=== PATIENT | male | born 1950 | race Caucasian/White ===

== ENCOUNTER 2017-06-11 11:18 | Observation (INO) | payer OTHER ==
[2017-06-04 11:02] VITALS: BP 132/92
[~2017-06-11] VITALS: Ht 193 cm; Wt 73.4 kg
[~2017-06-11 11:18] MED LIST: LISI-167 PO; QUET200T PO; TERA2CAP3 PO; VENL225T PO
[2017-06-11] MEDS ORDERED: LACTATED RINGERS 1,000 ML IV SCH (12:29)
[2017-06-11] MEDS ORDERED: LIDOCAINE 1%, 2ML SQ PRN (12:30)
[2017-06-11] MEDS ORDERED: DEXAMETHASONE 4 MG/ML, 1ML ONE (15:39)
[2017-06-11] MEDS ORDERED: SUCCINYLCHOLINE 20 MG/ML, 10ML ONE (15:39)
[2017-06-11] MEDS ORDERED: ONDANSETRON 2MG/ML, 2ML ONE (15:39)
[2017-06-11] MEDS ORDERED: CIPROFLOXACIN 400MG/200ML PMX ONE (15:39)
[2017-06-11] MEDS ORDERED: FENTANYL PF 100 MCG/2ML ONE ×2 (15:43→17:05)
[2017-06-11] MEDS ORDERED: OXYcodone 5 MG/5 ML ORAL.SOL UDC PO PRN (17:00)
[2017-06-11] MEDS ORDERED: ALBUTEROL SULFATE 2.5 MG/3 ML NPPB PRN (17:00)
[2017-06-11] MEDS ORDERED: METOPROLOL 1 MG/ML, 5ML IV PRN (17:00)
[2017-06-11] MEDS ORDERED: HYDROmorphone 1 MG/ML, 1ML IV PRN (17:00)
[2017-06-11] MEDS ORDERED: hydrALAzine 20 MG/ML, 1ML IV PRN (17:00)
[2017-06-11] MEDS ORDERED: MIDAZOLAM 1 MG/ML, 2ML IV PRN (17:00)
[2017-06-11] MEDS ORDERED: PROMETHAZINE 25 MG/ML, 1ML IV PRN (17:00)
[2017-06-11] MEDS ORDERED: MEPERIDINE/PF 25MG/0.5ML IVPush PRN (17:00)
[2017-06-11] MEDS ORDERED: OXYcodone 5 MG/5 ML ORAL.SOL UDC ONE (17:02)
[2017-06-11] MEDS ORDERED: ACETAMINOPHEN 325 MG TABLET ONE (17:02)
[2017-06-11] MEDS ORDERED: ACETAMINOPHEN 650 MG/20.3 ML UDC ONE (17:02)
[2017-06-11] MEDS: ACETAMINOPHEN 325 MG TABLET PO PRN ×2 (17:05→17:28)
[2017-06-11] MEDS: FENTANYL PF 100 MCG/2ML IV PRN ×2 (17:21→17:33)
[2017-06-11] MEDS ORDERED: MIDAZOLAM 1 MG/ML, 2ML ONE (17:42)
[2017-06-11] MEDS ORDERED: HYDROcodone/APAP 5/325 TABLET PO PRN (19:30)
[2017-06-11] MEDS ORDERED: CEFUROXIME 250 MG TABLET PO SCH (21:00)
[2017-06-11] MEDS ORDERED: PHENAZOPYRIDINE 100 MG TABLET PO PRN (21:00)
[2017-06-11] MEDS ORDERED: LISINOPRIL 10 MG TABLET PO ONE (22:00)
[2017-06-11] MEDS ORDERED: QUETIAPINE 200 MG TABLET PO SCH (22:00)
[2017-06-11] MEDS ORDERED: TERAZOSIN 2MG CAPSULE PO SCH (22:00)
[2017-06-11 23:44] VITALS: BP 108/71
[2017-06-12 04:09] VITALS: BP 109/66
[2017-06-12 07:07] VITALS: BP 103/66
[2017-06-12] MEDS ORDERED: PHEN100T90 PO (07:50)
[2017-06-12] MEDS ORDERED: CEFU250S PO (07:52)
[2017-06-12] MEDS ORDERED: QUETIAPINE 200 MG TABLET PO SCH (09:00)
[2017-06-12] MEDS ORDERED: LISINOPRIL 10 MG TABLET PO SCH ×2 (09:00)
[2017-06-12] MEDS ORDERED: VENLAFAXINE 75 MG CAP ER PO SCH (09:00)
[2017-06-12] MEDS ORDERED: TERAZOSIN 2MG CAPSULE PO SCH (09:00)
== END 2017-06-12 08:45 | disposition home or self-care (01) ==
LOC: OUT 11:18 → 4NOR 19:43
PROVIDERS: ADMIT Urology; ATTEND Urology
DX: C66.1 Malignant neoplasm of right ureter (principal); I10 Essential (primary) hypertension
CPT/HCPCS: 52354; 74000; 76000; 88112; 88305; C1726; C1758; C1769; G0378; J0330; J0744; J1100; J2405; J3010; J3490; J7120